=== PATIENT | male | born 1965 | race African-American/Black ===

== ENCOUNTER 2021-10-10 12:37 | Emergency (ER) | payer BC ==
[~2021-10-10] VITALS: Ht 185.4 cm; Wt 82.0 kg
[2021-10-10 12:50] VITALS: BP 121/75
[2021-10-10] MEDS ORDERED: VISCOUS LIDOCAINE 2% 15 ML UDC MM ONE (14:45)
[2021-10-10] MEDS ORDERED: FAMOTIDINE 20MG TABLET PO ONE (14:45)
[2021-10-10] MEDS ORDERED: MAGNESIUM/ALUMINUM HYDROXIDE/SIMETHICONE 30ML UDC PO ONE (14:45)
[2021-10-10] MEDS ORDERED: ONDANSETRON 4MG ODT PO ONE (14:45)
[2021-10-10 15:23] LABS: BASOPHILS % 0.6 % (0.0-2.0); EOSINOPHILS % 3.2 % (0.0-5.0); HEMATOCRIT. 40.1 % (42.0-52.0); HEMOGLOBIN. 13.9 g/dL (14.0-18.0); LYMPHOCYTES % 28.9 % (20.0-50.0); MEAN CORPUSCULAR HEMOGLOBIN 32.1 pg (28.0-32.0); MEAN CORPUSCULAR VOLUME 92.5 fL (80.0-94.0); MEAN PLATELET VOLUME 8.4 fl (7.4-10.4); MONOCYTES % 8.2 % (2.0-8.0); NEUTROPHILS % 59.1 % (40.0-76.0); PLATELET 261 x1000/uL (130-400); RED BLOOD CELL COUNT 4.33 mill/uL (4.7-6.1); RED CELL DISTRIBUTION WIDTH 14.2 % (11.6-14.6)
[2021-10-10] MEDS ORDERED: FAMO-135 MT (17:20)
[2021-10-10] MEDS ORDERED: ONDA4TAB11 PO ×2 (17:20→17:21)
== END 2021-10-10 17:37 | disposition home or self-care (01) ==
LOC: ER 12:37
DX: K29.70 Gastritis, unspecified, without bleeding (principal)
CPT/HCPCS: 36415; 85025; 99284; Q0162